=== PATIENT | female | born 1965 | race Caucasian/White ===

== ENCOUNTER 2018-05-29 06:00 | Day surgery (SDC) | payer MEDICARE, OTHER ==
[~2018-05-29] VITALS: Ht 152.4 cm; Wt 72.6 kg
[~2018-05-29 06:00] MED LIST: ATIVAN2 MG PO; CONSTULOSE10 GM/15 M PO; DAILY VITE1 EACH PO; HYDROCHLOROTH12.5 MG PO; LABETALOL HCL100 MG PO; LEVOTHYROXINE75 MCG PO; LOSARTAN POTASS50 MG PO; MAPAP325 MG PO; MELOXICAM7.5 MG PO; OMEPRAZOLE MAGN20 MG PO; OMEPRAZOLE20 MG PO; POTASSIUM CHLO20 ME2 PO; PREMARIN0.625 MG PO; SENOKOT8.6 MG PO; TRAZODONE HCL50 MG PO; TYLENOL WITH C1 EACH PO; ZOCOR10 MG PO
--- NOTE | 2018-05-29 09:50 | NUR ---
PT RETURNS TO DS ROOM 3 FROM PACU ON RA. PT VERY AGITATED AND PT BASELINE IS NON-VERBAL, MENTAL DELAY. PT DOES NOT WANT TO HAVE PULSE OX ON FINGER BUT BP IS SLIGHTLY ELEVATED. PT HAS NOT TAKEN BP MED SINCE YESTERDAY AM. OTHER VSS. NO IV SITE. PT WANTING TO GET OUT OF BED AND GET DRESSED. CARE GIVERS IN ROOM ASSIST PT TO DRESS AND GET IN WHEELCHAIR. WATER AND JELLO PROVIDED. CARE GIVERS AND CALL LIGHT WITHIN REACH.
--- NOTE | 2018-05-29 10:22 | NUR ---
05/29/18 1022 Ruba Hoffmann 0921- PT ARRIVES TO PACU WITH AN OPA IN PLACE AND ON 10L VIA MASK. RESP EVEN AND UNLABORED. OXYGEN SAT HIGH 90'S TO 100% ON 10L. LILY WRIGHT CRNA AWARE OF PT'S BP. NO NEW ORDERS AT THIS TIME. 0923- PT IS WAKING UP, TRYING TO SIT UP IN BED AND GAGGING ON THE OPA. OPA REMOVED. PT IS ON 6L VIA MASK AT THIS TIME. OXYGEN SAT MID TO HIGH 90'S ON THIS. PT'S TONGUE IS LARGE AND PT HAS SECRETIONS IN HER MOUTH. PT'S MOUTH SUCTIONED. SECRETIONS CLEARED. PT'S TONGUE IS CAUSING OBSTRUCTION. TONGUE DEPRESSER USED TO KEEP TONGUE DOWN. OBSTRUCTION CLEARS WITH THIS. RESP EVEN AND UNLABORED.
--- NOTE | 2018-05-29 10:49 | NUR ---
PT IN WHEELCHAIR AND CARE GVIERS TRANSPORT PT TO BATHROOM TO VOID. PT MEETS DC CRITERIA. PT ALLOWS THIS RN TO GET A SET OF VITAL SIGNS WHICH ARE STABLE. PT DRANK WATER AND ATE JELLO AND TOLERATES. SCANT AMOUNT OF SEROSANGUINOUS DRAINAGE FROM LOWER LIP. DC INSTRUCTIONS WITH PRECAUTIONS PROVIDED TO PT AND CAREGIVERS. PT'S GUARDIAN, HER MOTHER, VERBALIZES UNDERSTANDING AND DENIES FURHTER QUESTIONS. NO PRESCRIPTION GIVEN. PT TRANSPORTED IN WHEELCHAIR FROM DEPARTMENT TO HOME
== END 2018-05-29 10:50 | disposition home or self-care (01) ==
LOC: DS 06:00 → OPS 06:00 → DS 06:45 → OPS 10:50
PROVIDERS: Dentist General Practice
PROC: 0CRWXJ0 Replacement of Upper Tooth, Single, with Synthetic Substitute, External Approach (ICD-10-PCS; 2018-05-29)
PROC: 0CRXXJ1 Replacement of Lower Tooth, Multiple, with Synthetic Substitute, External Approach (ICD-10-PCS; principal; 2018-05-29 06:45)
DX: K02.9 Dental caries, unspecified (principal); K05.6 Periodontal disease, unspecified; K03.6 Deposits [accretions] on teeth; F84.0 Autistic disorder; I10 Essential (primary) hypertension; E78.5 Hyperlipidemia, unspecified; R62.50 Unspecified lack of expected normal physiological development in childhood; Z88.8 Allergy status to other drugs, medicaments and biological substances; Z79.899 Other long term (current) drug therapy
CPT/HCPCS: 70320; J0330; J2250; J2370; J2405; J2704; J3010; J7120

== ENCOUNTER 2022-11-15 06:53 | Day surgery (SDC) | payer MEDICARE, OTHER ==
[~2022-11-15] VITALS: Ht 152.4 cm; Wt 68.2 kg
[~2022-11-15 06:53] MED LIST changes: +CEPHALEXIN500 M1 PO; +CETIRIZINE HCL10 MG PO; +CRESTOR20 MG PO; +ERYTHROMYCIN1 GM; +MELATONIN3 M1 PO; +TRAMADOL HCL50 MG PO
[2022-11-15 07:14] VITALS: BP 180/108
[2022-11-15 08:32] VITALS: BP 164/88
[2022-11-15 12:13] VITALS: BP 156/91
--- NOTE | 2022-11-15 12:16 | NUR ---
YOHANA 1215: PT IS BACK TO DS FROM PACU. SHE IS DROWSY. SHE INDICATES THAT SHE WOULD LIKE CHOCOLATE PUDDING. WATER ON BEDSIDE TABLE. CAREGIVERS AND MOM ARE AT THE BEDSIDE.
--- NOTE | 2022-11-15 12:19 | EKG ---
[facility] [address] [facility] [place], [place] [address] Signed Normal sinus rhythm Nonspecific ST abnormality Abnormal ECG No previous ECGs available Confirmed by PAULINE CHATMAN MD ([id number]) on 11/15/2022 12:18:47 PM Electronically Signed By: PAULINE CHATMAN 11/15/22 1219 PATIENT NAME: VÍCTOR HALEY Electrocardiogram DATE OF : 65 PHYSICIAN: PAULINE CHATMAN REPORT #: [id number] REPORT IS CONFIDENTIAL AND NOT TO BE RELEASED WITHOUT AUTHORIZATION
--- NOTE | 2022-11-15 13:23 | NUR ---
11/15/22 1323 Paty Hayes 1111- PT ARRIVES TO PACU IN SEMI BRO POSITION, OPA IN PLACE, 10L O2 PER MASK. LR INFUSING TO LAC IV. PT IS NON REACTIVE TO STIMULI. PT HAS RHONCHI IN UPPER AIRWAY ON INSPIRATION AND EXPIRATION WITH ABD MUSCLE USE. RR UP TO 40, REPOSITIONED AIRWAY MULTIPLE TIMES WITH NO RELIEF FROM SOUND. SATS 100% ON O2, OPA IN PLACE BUT PT PUSHING FORWARD WITH VERY LARGE TONGUE. MOUTH AND AIRWAY SUCTIONED WITH LITTLE SECRETIONS BROUGHT UP. BLOOD CLOT FROM LEFT NARE PRODUCED. 1113- ATTEMPTING TO WAKE PT WITH STIMULUS AND ENCOURAGED TO COUGH WITHOUT RESPONSE. CONINUE TO MONITOR. THIS RN AND SOIL SORT WORKER REMAIN AT BEDSIDE WELL ANOTHER RN. 1116- OPA REMOVED AT THIS TIME, O2 REMAINS IN PLACE BY MASK. PT PLACED IN HIGH BRO POSITION. RHONCHI CONTINUES AND PT REMAINS TACHYPNEIC WITH ABD MUSCLE USE. ANOTHER ATTEMPT TO SUCTION WITH LITTLE TO NO SECRETIONS. ENCOURAGING PT TO COUGH, NO RESPONSE AT THIS TIME. 1120- PT ABLE TO REACH FOR O2 MASK AND REMOVED. PT ON ROOM AIR AT THIS TIME. PT HAS NOT OPENED EYES ALTHOUGH REACTIVE TO STIMULI AND PULLING AT MONITORS. PT IS SWALLOWING AND BREATHING IMPROVING SOME BUT STILL RHONCHOROUS. 1130- PT CONTINUES TO PULL AT MONITORS, PT HAS COUGHED AND CLEARED THROAT SOME. RR IS IMPROVING AND RHONCHI IS IMPROVING HOWEVER STILL AUDIBLE. 1145- PT BED CHANGED AND PANTS REMOVED DUE TO URINARY INCONTINENCE DURING PROCEDURE. PT IS STARTING TO OPEN EYES, PULLS BLANKETS AND GOWN OFF. PT IS NON VOCAL, BUT FOLLOWS COMMANDS TO COUGH. 1200- PT IS DROWSY BUT AWAKE. CONTINUES TO PULL AT MONITORS AND REMOVES BLANKETS. RHONCHI BARELY AUDIBLE AT THIS TIME. PT HAS MAINTAINED SATS OVER 91% FOR 25 MINUTES AT THIS TIME. PT IS ABLE TO FOLLOW COMMANDS AND VITAL SIGNS RETURN TO BASELINE. PT STILL MILDLY TACHYPNEIC. IV SALINE LOCKED. 1215- PT BACK TO DAY SURGERY. BETSY LYNCH GIVEN BEDSIDE REPORT, SALINE LOCK REMAINS IN PLACE. PT IS AWAKE AND INTERACTIVE WITH CAREGIVER, RN, AND MOTHER AT BEDSIDE. CARE OF PT TURNED OVER AT THIS TIME.
[2022-11-15 13:35] VITALS: BP 151/94
--- NOTE | 2022-11-15 13:52 | NUR ---
LE 1320: PT'S CAREGIVER STATES THAT THE PT WOULD LIKE TO GET UP TO GO TO THE BATHROOM. SHE IS ASSISTED TO HER WHEELCHAIR, THEN INTO THE BATHROOM. WHERE SHE HELPS TRANSFER HERSELF TO THE TOILET AND VOIDS. LE 1335: PT'S CLOTHS ARE CHANGED, SOCK AND SHOES PUT ON. SHE IS THEN HELPED BACK INTO HER WHEELCHAIR. LE 1340: PT'S CAREGIVER AND MOM ARE GIVEN VERBAL AND WRITTEN DC INSTRUCTIONS. THEY BOTH VERBAIZE UNDERSTANING. PT INDICATES SHE IS LISTENING BY GIVING THIS RN "IAN." PT IS TAKEN TO FACILITY VEHICLE VIA PERSONAL WC.
== END 2022-11-15 13:45 | disposition home or self-care (01) ==
LOC: DS 06:53 → OPS 06:53 → DS 09:00 → OPS 13:45
PROVIDERS: ATTEND Dentist General Practice
PROC: 0CQW0Z1 Repair of Upper Tooth, Multiple, Open Approach (ICD-10-PCS; 2022-11-15)
PROC: 0CQX0Z1 Repair of Lower Tooth, Multiple, Open Approach (ICD-10-PCS; principal; 2022-11-15 09:00)
DX: K02.9 Dental caries, unspecified (principal); E03.9 Hypothyroidism, unspecified; I10 Essential (primary) hypertension; E78.5 Hyperlipidemia, unspecified; R62.50 Unspecified lack of expected normal physiological development in childhood; G80.9 Cerebral palsy, unspecified
CPT/HCPCS: 00170; 93005; 93010; A9270; J2001; J2250; J2704; J7121

== ENCOUNTER 2024-09-10 05:52 | Day surgery (SDC) | payer MEDICARE, OTHER ==
[~2024-09-10] VITALS: Ht 152.4 cm; Wt 71.0 kg
[~2024-09-10 05:52] MED LIST changes: +AZO D-MANNOSE500 MG PO; +DAILY VITE1 EAC1 PO; -ERYTHROMYCIN1 GM; +ERYTHROMYCIN1 GM OP; -MAPAP325 MG PO; +MAPAP500 MG PO; +PEG3350510 GM PO
[2024-09-10] MEDS ORDERED: DEXAMETHASONE SOD PHOS 4 MG/ML VIAL ONE (06:42)
[2024-09-10] MEDS ORDERED: LIDOCAINE HCL 2% 5 ML SDV ONE (06:42)
[2024-09-10] MEDS ORDERED: ROCURONIUM BROMIDE 50 MG/5 ML SYR ONE (06:42)
[2024-09-10] MEDS ORDERED: KETAMINE in NS 50 MG/5 ML SYR ONE (06:42)
[2024-09-10] MEDS ORDERED: ESMOLOL HCL 100 MG/10 ML VIAL IV ONE (06:42)
[2024-09-10] MEDS ORDERED: OXYMETAZOLINE HCL 30 ML BTL ONE (06:43)
[2024-09-10 07:09] VITALS: BP 160/115
[2024-09-10] MEDS ORDERED: PHENYLEPHRINE HCL 10 MG/ML VIAL ONE (07:25)
[2024-09-10] MEDS ORDERED: SUGAMMADEX SODIUM 200 MG/2 ML ML ONE (08:10)
--- NOTE | 2024-09-10 08:40 | NUR ---
PT ARRIVED BACK FROM PACU AT THIS TIME. PT AWAKE AND TALKING. PT ATTEMPTING TO GET OUT OF BED AT THIS TIME. PT NOT ALLOWING THIS RN TO GET BLOOD PRESSURE. PT O2 SATS IN THE MID 90'S. PT SKIN WARM AND PINK. RESPIRATIONS 18 AT THIS TIME.
--- NOTE | 2024-09-10 08:50 | NUR ---
SPOKE WITH JUAN BERRY. OKAY WITH PATIENT LEAVING BEFORE 1 HOUR DUE TO AGGITATION.
[2024-09-10 09:07] VITALS: BP 163/94
--- NOTE | 2024-09-10 09:15 | NUR ---
PT DISCHARGED TO HOME WIT ALL BELONGINGS AND CAREGIVERS.
--- NOTE | 2024-09-10 09:15 | NUR ---
09/10/24 0915 FreddyPaty J 0822- PT ARRIVES TO PACU, DROWSY AND AGITATED. PT MOVING ALL EXTREMITIES, PULLED O2 MASK OFF. BREATHING EVEN AND NON LABORED, INTERMITTENT COUGH. ABD SOFT, NON DISTENDED. LR HANGING TO [facility] IV. ARM HELD IN ORDER TO GET A BLOOD PRESSURE AFTER 3 ATTEMPTS, 1 BP OBTAINED. PT VITAL SIGNS AT BASELINE FOR PT. PT REACHING FOR SCD'S, ALSO REMOVED. 0828- PT CONTINUES TO PULL AT OBJECTS. SPOT CHECKS OF SPO2 AND HR ARE NORMAL. UNABLE TO OBTAIN FURTHER BLOOD PRESSURES. PT ANSWERS YES OR NO QUESTIONS. DENIES PAIN OR NAUSEA. 0835- PT IS AWAKE BUT DROWSY, MOVING ALL EXTREMITIES EQUALLY. PT TRYING TO REMOVE CLOTHING AT THIS TIME. COLOR IS NORMAL FOR PT, SKIN PINK WARM AND DRY.
[2024-09-10] MEDS ORDERED: SEVOFLURANE 250 ML BTL INH ONE (14:09)
== END 2024-09-10 09:15 | disposition home or self-care (01) ==
LOC: OPS 05:52 → DS 06:00 → OPS 07:30
PROVIDERS: ATTEND Dentist General Practice
PROC: 0CRWXJ1 Replacement of Upper Tooth, Multiple, with Synthetic Substitute, External Approach (ICD-10-PCS; 2024-09-10)
PROC: 0CRXXJ1 Replacement of Lower Tooth, Multiple, with Synthetic Substitute, External Approach (ICD-10-PCS; principal; 2024-09-10 07:30)
DX: K02.9 Dental caries, unspecified (principal); K08.89 Other specified disorders of teeth and supporting structures; E78.5 Hyperlipidemia, unspecified; Z79.899 Other long term (current) drug therapy; Z88.8 Allergy status to other drugs, medicaments and biological substances
CPT/HCPCS: 00170; J1100; J2003; J2371; J2405; J2704; J3490